=== PATIENT | female | born 1995 | race Caucasian/White ===

== ENCOUNTER → 2019-09-13 16:51 | Outpatient (CLI) | payer OTHER, SELFPAY ==
[2019-09-13 16:00] VITALS: BMI 35.6
[2019-09-13 20:39] LABS: Chlamydia Trachomatis by PCR Negative (Negative); Neisserai gonorrhoeae by PCR Negative (Negative); Probe Check PASS; Sample Adequacy Control PASS; Specimen Processing Control PASS
[2019-09-18 20:05] LABS: HPV Reflexed? NOT INDICATED
== END ==
PROVIDERS: Referring Provider Nurse Practitioner Women's Health; Visit Provider Nurse Practitioner Women's Health
DX: Z12.4 Encounter for screening for malignant neoplasm of cervix (principal); Z11.3 Encounter for screening for infections with a predominantly sexual mode of transmission
CPT/HCPCS: 87491; 87591; 88175; G0145